=== PATIENT | female | born 2000 | race Caucasian/White ===

== ENCOUNTER 2020-10-26 08:58 | Outpatient (CLI) | payer BC ==
--- NOTE | 2020-10-26 09:15 | ULT ---
EXAM: US Breast Limited Rt PROVIDED CLINICAL HISTORY: Right breast palpable abnormality COMPARISON: None FINDINGS: Limited sonographic interrogation of the right breast was performed in the region of palpable concern from the 11-1 o'clock positions. The sonographic appearance of the interrogated breast tissue is normal. IMPRESSION: No sonographic abnormality is evident in the region of clinical concern. Negative imaging findings sh ould not preclude further evaluation of a clinically suspicious area. The patient is referred back to her clinician.
== END 2020-10-26 08:59 | disposition home or self-care (01) ==
LOC: BICULT 08:58
PROVIDERS: ATTEND Advanced Practice Midwife
DX: N63.10 Unspecified lump in the right breast, unspecified quadrant (principal)